=== PATIENT | male | born 1985 | race Caucasian/White ===

== ENCOUNTER 2016-12-28 20:30 | Emergency (ER) | payer MEDICAID ==
[~2016-12-28] VITALS: Ht 177.8 cm; Wt 86.5 kg
[2016-12-28 20:34] VITALS: Ht 177.8 cm; Wt 86.5 kg
[2016-12-28] MEDS ORDERED: ELIM TOP (21:29)
--- NOTE | 2016-12-28 21:43 | ERD ---
ER Documentation Chief Complaint Date/Time DATE: 12/28/16 TIME: 21:40 Chief Complaint rashes both arms HPI This is a 31-year-old male presents to the ER with a rash on bilateral arms for the last 2 weeks. Patient states that rash feels as if bugs are crawling on him. Patient denies any fevers or chills. Patient was home was 2 weeks ago and was sleeping on the street. She denies any facial swelling or shortness of breath. Rash is only located on his arms. ROS 12 point review of systems was done, all negative except per HPI. Medications Home Meds Active Scripts Permethrin* (Elimite*) 5% Cr, 1 APPLIC TOP ONCE for 1 Day, TUB Prov:JAYCEE SAENZ 12/28/16 Allergies Allergies: Coded Allergies: No Known Allergy (Unverified , 12/28/16) Physical Exam Vitals Vital Signs Date Time Temp Pulse Resp B/P Pulse Ox O2 Delivery O2 Flow Rate FiO2 12/28/16 20:34 97.7 82 20 129/80 100 Physical Exam GENERAL: The patient is well developed and appropriate for usual state of health , in no apparent distress. HEENT: Atraumatic. No lip, tongue, eye swelling. CHEST: Clear to auscultation bilaterally. There are no rales, wheezes or rhonchi. NEURO: Alert and oriented. SKIN: Burrowing rash on bilateral arms. Procedures/MDM Differential Diagnosis: dermatitis, allergic urticaria, viral exanthem, insect bite, fungal infectio ,viral exanthem, hand foot mouth disease, , impetigo, cellulitis, abscess, kylee catracho syndrome, meningocemia, necrotizing fasciitis. This is a 31-year-old male presents to the ER with a rash to bilateral arms. This is likely scabies. Suspicion for infectious etiology is low as patient is afebrile and well-appearing. Suspicion for allergic reaction is low as patient does not have any facial swelling, difficulty with breathing or hypoxia. Patient be sent home with permethrin. He needs follow-up with his primary care doctor within 1-2 days or return to ER sooner symptoms worsen. My medical history of exposure with patient he understands and agrees with plan. Departure Diagnosis: Primary Impression: Rash Condition: Stable Patient Instructions: Self-Care for Skin Rashes Referrals: COMMUNITY CLINICS YOU HAVE RECEIVED A MEDICAL SCREENING EXAM AND THE RESULTS INDICATE THAT YOU DO NOT HAVE A CONDITION THAT REQUIRES URGENT TREATMENT IN THE EMERGENCY DEPARTMENT. FURTHER EVALUATION AND TREATMENT OF YOUR CONDITION CAN WAIT UNTIL YOU ARE SEEN IN YOUR DOCTORS OFFICE WITHIN THE NEXT 1-2 DAYS. IT IS YOUR RESPONSIBILITY TO MAKE AN APPOINTMENT FOR FOLOW-UP CARE. IF YOU HAVE A PRIMARY DOCTOR --you should call your primary doctor and schedule an appointment IF YOU DO NOT HAVE A PRIMARY DOCTOR YOU CAN CALL OUR PHYSICIAN REFERRAL HOTLINE AT IF YOU CAN NOT AFFORD TO SEE A PHYSICIAN YOU CAN CHOSE FROM THE FOLLOWING [facility] CL[facility] [address] [facility]. [facility] [address] [facility] [facility] [address] [facility] [facility] [address] [address] [facility] [address] [facility]. [facility]. [address] Additional Instructions: Call your primary care doctor TOMORROW for an appointment during the next 1-2 days.See the doctor sooner or return here if your condition worsens before your appointment time. JAYCEE SAENZ Dec 28, 2016 21:43
== END 2016-12-28 21:30 | disposition home or self-care (01) ==
LOC: E/R 20:30
DX: R21 Rash and other nonspecific skin eruption (principal)
CPT/HCPCS: 99283

== ENCOUNTER 2017-01-20 16:52 | Emergency (ER) | payer MEDICAID ==
[~2017-01-20] VITALS: Ht 175.3 cm; Wt 88.0 kg
[~2017-01-20 16:52] MED LIST: ELIM TOP
[2017-01-20 16:58] VITALS: Ht 175.3 cm; Wt 88.0 kg
--- NOTE | 2017-01-20 17:08 | ERD ---
ER Documentation Chief Complaint Date/Time DATE: 01/20/17 TIME: 17:03 Chief Complaint hx scabies, needs medication for scabies "i can feel them crawling" HPI This 31-year-old male patient presents to the emergency department for re- evaluation of skin infestation. Patient was diagnosed and treated for scabies 3 weeks ago, reports that he has no visible rash but he can feel a itchy irritation under his skin. Patient reports that he is homeless and living at his job site Elimite application. Patient denies fever, erythema, or visible rash. ROS All systems reviewed and are negative except as per history of present illness. Medications Home Meds Active Scripts Permethrin* (Elimite*) 5% Cr, 1 APPLIC TOP ONCE for infastation for 1 Day, TUB 1 Refill Prov:JUSTUSGAMAHAN 01/20/17 Permethrin* (Elimite*) 5% Cr, 1 APPLIC TOP ONCE for 1 Day, TUB Prov:DANY,JAYCEE C 12/28/16 Allergies Allergies: Coded Allergies: No Known Allergy (Unverified , 12/28/16) Physical Exam Vitals Vital Signs Date Time Temp Pulse Resp B/P Pulse Ox O2 Delivery O2 Flow Rate FiO2 01/20/17 16:58 98.2 78 18 155/67 98 Vitals stable, triage notes reviewed Physical Exam Const: Well-nourished, well-hydrated no acute distress Head: Atraumatic Eyes: Normal Conjunctiva PERRLA, EOMI ENT: Normal External Ears, Nose and Mouth. Neck: Full range of motion..~ No meningismus. Resp: Respirations even and unlabored, no respiratory distress Cardio: Regular rate and rhythm, no murmurs Abd: Soft, non tender, non distended. Normal bowel sounds Skin: Skin is clean, dry, no petechiae or rashes, skin intact without secondary scabs, vesicles, or scratch radha, no dermographism, no lichenification Back: Ext: Neur: Awake and alert Psych: Normal Mood and Affect Procedures/MDM This pleasant 31-year-old male patient presents to emergency department for additional treatment of scabies. Patient was seen and treated 3 weeks ago was with Elimite, reports that he use medication as prescribed, started feeling new symptoms a few days ago. Patient states he did clean his house, close and bending. Shingles, hives, poison oak, dermatitis not suspected, patient will receive prescription for Elimite with 1 refill instructed to use a second time after 7 days, repeat all prior cleaning to sleeping area including bed, then in , and clothing. Patient reports that he currently is homeless living on his job site. I feel the patient is stable for discharge at this time with outpatient management by primary care physician. I have discussed results, examination findings, the treatment plan with the patient and family present prior to discharge. Indications for emergent reevaluation, side effects of medication were also discussed. All questions were answered. Patient verbalizes understanding and agrees with plan of care. Departure Diagnosis: Primary Impression: Infestation (skin) Condition: Good Patient Instructions: Scabies Additional Instructions: Thank you for for coming to [facility] for your care today. Please ask your nurse or provider if you have questions about your care today and do not leave until all your questions have been answered. Please use any medications given as directed and follow-up with your doctor (or the doctor you were referred to) in the next 2-3 days. If you do not have a primary care doctor you may follow up at the [facility] (listed below). You may also use motrin and tylenol as needed for fever and/or pain unless instructed otherwise by your provider or nurse. Indications for more urgent follow-up have been discussed, but you may return to the Emergency Department at ANY time for any worrisome or worsening symptoms. If you have abdominal pain, please know that no test or exam you received is perfect and you should follow up within 8 hours for continued pain. If you had any imaging studies today, such as an X-Ray or CT Scan, these studies will be reviewed later by a radiologist. You will be called if there are important findings that were not identified today, so make sure the contact information you provided at registration is correct. If you received any narcotic pain control medicine today, such as Vicodin, Morphine or Dilaudid, your coordination and judgment may be affected for a number of hours. Please do not drive or operate heavy machinery, and you may want someone to assist you at home. If you were given a prescription for narcotic medication, be aware that it is very addictive- use sparingly and only if necessary. HAN JEROME Jan 20, 2017 17:08
[2017-01-20] MEDS ORDERED: ELIM TOP (17:10)
== END 2017-01-20 17:11 | disposition home or self-care (01) ==
LOC: E/R 16:52
DX: B88.9 Infestation, unspecified (principal)
CPT/HCPCS: 99283

== ENCOUNTER 2017-10-14 17:32 | Emergency (ER) | END 2017-10-14 19:57 | disposition home or self-care (01) ==